=== PATIENT | female | born 1975 | race Caucasian/White ===

== ENCOUNTER 2016-05-29 08:48 | Outpatient (CLI) | payer MEDICAID ==
[~2016-05-29] VITALS: Ht 154.9 cm; Wt 69.8 kg
[~2016-05-29 08:48] MED LIST: PREN1TAB49
[2016-05-29 08:51] VITALS: Ht 154.9 cm; Wt 69.8 kg
[2016-05-29] MEDS ORDERED: CALC600T11 PO (09:40)
[2016-05-29] MEDS ORDERED: FERR325C PO (09:40)
[2016-05-29 10:04] LABS: ADD UMIC YES; URINE BILIRUBIN (Dip) NEGATIVE (NEGATIVE); URINE BLOOD (Dip) NEGATIVE (NEGATIVE); URINE COLOR YELLOW (YELLOW); URINE GLUCOSE (Dip) NEGATIVE (NEGATIVE); URINE KETONES (Dip) 3+ (NEGATIVE); URINE LEUKOCYTE ESTERASE (Dip) TRACE (NEGATIVE); URINE NITRITE (Dip) POSITIVE (NEGATIVE); URINE TOTAL PROTEIN (Dip) TRACE (NEGATIVE); URINE UROBILINOGEN (Dip) 0.2 E.U./dL (0.1-1.0)
--- NOTE | 2016-05-29 10:29 | CONS ---
Date/Time of Note Date/Time of Note DATE: 05/29/16 TIME: 10:21 Assessment/Plan Assessment/Plan Chief Complaint/Hosp Course at 31.3 weeks with cough and reported fever. BPP, CL, FFN, UA ordered. F/ u results. Problems: Consultation Date/Type/Reason Admit Date/Time Reason for Consultation cough, fever Hx of Present Illness Patient reports cough and fever for last 2 days. Fever reported at 102 at home. Took tylenol once yesterday. Reports some nausea and vomiting, but tolerating po intake. Also report decreased movement. Denies LOF, VB, UCs, dysuria. Getting PNC, no complications. Social History Smoking Status: Never smoker Exam/Review of Systems Vital Signs Vitals AFVSS Exam Additional Comments Gen: NAD HEENT: NCAT CV: RRR Pulm: CTAB Abd: gravid, NT Back: no CVAT Ext: NT FHT: reactive [place]: irritability PMH: denies PSH: CS x3 Medications Medications PNV, iron, calcium AGUILAR WIGGINS May 29, 2016 10:29
[2016-05-29 10:38] LABS: BACTERIA,URINE MANY; SQUAMOUS EPITHELIAL CELL,UR FEW; URINE RBCS NONE SEEN /HPF (0)
--- NOTE | 2016-05-29 10:45 | RADRPT ---
PROCEDURE: OB ultrasound for biophysical profile CLINICAL INDICATION: Biophysical profile. . Decreased movement TECHNIQUE: Multiple sonographic images of the pelvis were obtained. Transabdominal and transvagin al views are obtained. COMPARISON: 03/24/2016 FINDINGS: Single intrauterine gestation. Presentation: [place] - breech Placenta: Posterior No evidence of placental abruption. No evidence of placenta previa. Cervix is closed as visualized transvaginally measuring 4.1 cm. breathing movement = 2/2 tone = 2/2 motion = 2/2 KALEIGH = 2/2 KALEIGH = 15.0 cm heart rate: 152 beats per minute IMPRESSION: Single intrauterine gestation. Biophysical profile 09/15 Breech presentation. RPTAT: AADD .Jesus Merino MD, Date Time Electronically viewed and signed by .Jeuss Merino MD, on 05/29/2016 10:45 .B/
--- NOTE | 2016-05-29 11:26 | TRIAGE ---
OB Triage Datetime Report Generated by CPN: 05/29/2016 11:26 Datetime: 05/29/2016 10:23 Labor Evaluation Frequency: Irritability Monitor Mode: External Quality: Mild Pattern: Normal: <= 5 Contractions in 10 Minutes Resting Tone [place]: Relaxed Heart Rate FHR Baseline Rate: 140 Monitor Mode: External US FHR Baseline Changes: No Baseline Change Variability: Moderate 6-25 bpm Accelerations: 15X15 Decelerations: None Category: Category I Pain Presence: None/Denies Datetime: 05/29/2016 09:27 Labor Evaluation Frequency: Irritability Monitor Mode: External Duration (sec)2399: 30-100 Quality: Mild Pattern: Normal: <= 5 Contractions in 10 Minutes Resting Tone [place]: Relaxed Heart Rate FHR Baseline Rate: 135 Monitor Mode: External US FHR Baseline Changes: No Baseline Change Variability: Moderate 6-25 bpm Accelerations: 15X15 Decelerations: None Category: Category I Pain Assessment Pain Scale: 4 Pain Presence: Intermittent Pain Type: Ache Pain Location: Other Pain Goal: 0 Pain Relief Measures: Comfort Measures Pain Assessment Comments: Pt states pain in chest when coughing. Pt denies feeling any pain or pre ssure with contractions Datetime: 05/29/2016 09:00 EGA: 31.3 Datetime: 05/29/2016 08:56 Assessment Type: Triage Maternal Assessment Level of Consciousness: Fully Conscious DTR's/Clonus: DTRs 2+; No Clonus Headache: Denies Blurred Vision: No Respiratory Effort: Unlabored; Regular Rhythm; Equal Expansion Breath Sounds, Left: Clear and Equal Breath Sounds, Right: Clear and Equal Nausea/Vomiting: Denies RUQ Epigastric Pain: Denies Lower Extremities Edema: None Degree: None Upper Extremities Edema: None Degree: None Facial Edema: None Fall Risk Assessment History of Falling: (0) No Secondary Diagnosis: (0) No Ambulatory Aid: (0) Bedrest/Nurse Assist IV Therapy: (0) No Gait: (0) Normal/Bedrest/Immobile Mental Status: (0) Oriented to Own Ability Fall Score: 0 Fall Risk Score Definition: No Risk: No action required Datetime: 05/29/2016 08:52 Time of Arrival: 05/29/2016 08:44 Arrived By: Ambulatory Arrived From: Home Chief Complaint: Flu Symptoms Movement: Decreased Contractions: Denies/Absent Rupture of Membranes: Denies Vaginal Bleeding: None Vaginal Discharge: Denies Recent Sexual Intercouse: Denies Abdominal Trauma: Not Applicable Time Provider Notified: 05/29/2016 09:12 Provider Notified: Uaje Initial Plan: NST, BPP/KALEIGH, Cervical Length, UA Datetime: 05/29/2016 08:49 Stage of : OB Triage
== END 2016-05-29 11:15 | disposition home or self-care (01) ==
LOC: L-D 08:48 → OBT 08:48
PROVIDERS: ATTEND Obstetrics & Gynecology
DX: O26.893 Other specified pregnancy related conditions, third trimester (principal); Z3A.31 31 weeks gestation of pregnancy; R05 Cough; R50.9 Fever, unspecified; O36.8130 Decreased fetal movements, third trimester, not applicable or unspecified
CPT/HCPCS: 76817; 76818; 81001; 82731; Z7500; 81003; G0463

== ENCOUNTER 2016-07-24 07:30 | Inpatient (IN) | payer MEDICAID ==
[~2016-07-24] VITALS: Ht 154.9 cm; Wt 72.7 kg
[~2016-07-24 07:30] MED LIST changes: +CALC600T11 PO; +FERR325C PO
[2016-07-24] MEDS ORDERED: LACTATED RINGER'S 1,000 ML IV SCH (09:49)
[2016-07-24] MEDS ORDERED: OXYTOCIN 30 UNITS/LR 500 ML IV SCH ×2 (10:00→16:59)
[2016-07-24] MEDS ORDERED: METHYLERGONOVINE 0.2 MG INJ IM PRN ×2 (10:00→17:00)
[2016-07-24] MEDS ORDERED: CARBOPROST 250 MCG INJ IM PRN ×2 (10:00→17:00)
[2016-07-24] MEDS ORDERED: MISOPROSTOL 200 MCG TAB PR PRN ×2 (10:00→17:00)
[2016-07-24] MEDS ORDERED: OXYTOCIN 30 UNITS/LR 500 ML IV PRN ×2 (10:00→17:00)
[2016-07-24] MEDS ORDERED: CEFAZOLIN 2 GM/50 ML (PMX) 50 ML IV SCH (10:00)
[2016-07-24 10:18] VITALS: Ht 154.9 cm; Wt 72.7 kg
[2016-07-24 10:46] LABS: ADD SCAN DIFF NO
[2016-07-24 10:51] LABS: ABNORMAL IP MESSAGE 1; BASOPHILS % 0.2 % (0.0-2.0); EOSINOPHILS # 0.1 10^3/ul (0.0-0.5); EOSINOPHILS % 0.6 % (0.0-7.0); HEMATOCRIT 38.5 % (37.0-47.0); HEMOGLOBIN 13.2 g/dl (12.0-16.0); LYMPHOCYTES # 2.4 10^3/ul (0.8-2.9); LYMPHOCYTES % 27.4 % (15.0-51.0); MEAN CORPUSCULAR HEMOGLOBIN 29.7 pg (29.0-33.0); MEAN CORPUSCULAR HGB CONC 34.3 g/dl (32.0-37.0); MEAN CORPUSCULAR VOLUME 86.7 fl (82.0-101.0); MEAN PLATELET VOLUME 13.4 fl (7.4-10.4); MONOCYTE # 0.7 10^3/ul (0.3-0.9); MONOCYTES % 8.4 % (0.0-11.0); NEUTROPHIL # 5.6 10^3/ul (1.6-7.5); NEUTROPHILS % 62.8 % (39.0-77.0); PLATELET COUNT 163 10^3/UL (140-415); RED BLOOD COUNT 4.44 10^6/ul (4.20-5.40); RED CELL DISTRIBUTION WIDTH 15.2 % (11.5-14.5); WHITE BLOOD COUNT 8.8 10^3/ul (4.8-10.8)
[2016-07-24 11:11] LABS: INR 1.01; PROTIME 13.3 Sec (12.2-14.2)
[2016-07-24 11:12] LABS: PARTIAL THROMBOPLASTIN TIME 27.3 Sec (25.0-35.0)
[2016-07-24] MEDS ORDERED: LACTATED RINGER'S 1,000 ML IV ONE (11:34)
[2016-07-24] MEDS ORDERED: FAMOTIDINE 20 MG INJ IV ONE (12:00)
[2016-07-24] MEDS ORDERED: CITRIC ACID/SODIUM CITRATE 15 ML CUP PO ONE (12:00)
[2016-07-24] MEDS ORDERED: METOCLOPRAMIDE 10 MG INJ IV ONE (12:00)
[2016-07-24] MEDS ORDERED: morphine SULFATE/PF (10 MG/10 ML) INJ ONE (12:56)
[2016-07-24] MEDS ORDERED: FENTAnyl 50 MCG/ML VIAL ONE (12:56)
[2016-07-24] MEDS ORDERED: PHENYLephrine (100 MCG/ML) 5ML SYG ONE ×2 (13:07→13:25)
[2016-07-24] MEDS ORDERED: DIPHENHYDRAMINE 50 MG INJ IV PRN ×2 (13:30→16:30)
[2016-07-24] MEDS ORDERED: FENTAnyl 50 MCG/ML VIAL IV PRN (13:30)
[2016-07-24] MEDS ORDERED: MEPERIDINE 25 MG INJ IV PRN (13:30)
[2016-07-24] MEDS ORDERED: HYDROmorphONE (0.2 MG/ML) 10ML SYG IV PRN (13:30)
[2016-07-24] MEDS ORDERED: PROCHLORPERAZINE 10 MG INJ IV PRN ×2 (13:30→16:30)
[2016-07-24] MEDS ORDERED: KETOROLAC 30 MG INJ IV PRN (13:30)
[2016-07-24] MEDS ORDERED: ONDANSETRON 4 MG INJ IV PRN ×3 (13:30→17:00)
[2016-07-24] MEDS ORDERED: ONDANSETRON 4 MG INJ ONE (13:35)
[2016-07-24] MEDS ORDERED: MIDAZOLAM 1 MG/ML 2 ML INJ ONE (13:38)
[2016-07-24] MEDS ORDERED: OXYTOCIN 30 UNITS/LR 500 ML IV ONE ×2 (13:45→14:39)
[2016-07-24] MEDS ORDERED: KETOROLAC 30 MG INJ ONE (14:15)
[2016-07-24] MEDS ORDERED: HYDROmorphONE 2 MG/ML SYG ONE (14:20)
[2016-07-24] MEDS ORDERED: NALOXONE (0.4 MG/ML) INJ IV PRN (16:30)
[2016-07-24] MEDS ORDERED: HYDROmorphONE 1 MG/ML SYG IV PRN ×2 (16:30)
[2016-07-24] MEDS ORDERED: ZOLPIDEM 5 MG TAB PO PRN (16:30)
[2016-07-24] MEDS ORDERED: OXYCODONE/ACETAMINOPHEN (5/325) TAB PO PRN (17:00)
[2016-07-24] MEDS ORDERED: LANOLIN 7 GM TUBE TOP PRN ×2 (17:00)
[2016-07-24] MEDS ORDERED: CEFAZOLIN 1 GM/50 ML (PMX) 50 ML IVPB SCH ×2 (17:00→22:00)
[2016-07-24] MEDS ORDERED: BENZOCAINE 20% 56 ML SPRAY TOP PRN (17:00)
[2016-07-24] MEDS ORDERED: ACETAMINOPHEN 325 MG TAB PO PRN (17:00)
[2016-07-24] MEDS ORDERED: OXYCODONE/ASPIRIN (4.88/325) TAB PO PRN ×2 (17:00)
[2016-07-24] MEDS ORDERED: DIBUCAINE 1% 30 GM OINT TOP PRN (17:00)
[2016-07-24] MEDS ORDERED: ACETAMINOPHEN/CODEINE #3 TAB PO PRN ×4 (17:00)
[2016-07-24] MEDS ORDERED: WITCH HAZEL/GLYCERIN PAD PR PRN (17:00)
--- NOTE | 2016-07-24 17:01 | HP ---
Date/Time of Note Date/Time of Note DATE: 07/24/16 TIME: 16:54 OB - History Hx of Present Free Text/Dictation This is a 37 years old female 6 para 4 IAB 1 admitted to [facility] in labor examination on admission cervix 3 cm dilated 60% effaced vertex at -2 -3 station patient transferred from triage to the L&D unit for delivery This patient has been under the care of the [facility] course was not complicated with gestational diabetes -induced hypertension or any other serious surgical or medical conditions except history of asthma 8 years ago which has not been using any inhaler or any treatment for the asthma Estimated Due Date: Aug 05, 2016 : 6 Para: 4 Therapeutic : 1 Care: Good Care Ultrasounds: Normal mid trimester US Obstetrical Complications: None Past Family/Social History * Past Medical, Surgical, Family and Obstetric Histories reviewed from chart. Rubella: immune RPR/VDRL: Negative GBS Status: Negative HBsAG: Negative OB Admission Exam Physical Exam HEENT: WNL Heart: Rhythm Normal Extremities: Normal Reflexes: Normal Cervical Dilatation: 3cm Effacement: Other (60%) Station: -3 Membranes: Intact Heart Rate: 130's Decelerations: No Decelerations Varibility: Moderate Contractions on Admission: < 5 Minutes Apart Intensity: Moderate Last 72 hours Lab Results CBC & BMP 07/24/16 10:00 OB Assessment/Plan Reason for admission: other (Labor contractions) Plan: Expectant Management MURALI IPERCE MD Jul 24, 2016 17:01
--- NOTE | 2016-07-24 17:05 | LDN ---
Date/Time of Note Date/Time of Note DATE: 07/24/16 TIME: 17:01 Delivery Summary Normal spontaneous vaginal delivery of a baby girl from OA position shoulders delivered without any difficulty rest of the baby's body followed nuchal cord 2 around the baby's neck placenta is spontaneous expulsion inspected complete, perineal vaginal inspection no laceration estimated blood loss 250 cc Weeks of Gestation 38 weeks 2 days Placenta Delivered: Spontaneously Meconium: none Anesthesia type: Epidural Estimated blood loss: 250 Sponge & Needle done & correct: Yes All needle counts correct: Yes Any foreign bodies felt in the: No Problems: Infant Delivery Information Sex Sex: female Apgars 1 Minute: 9 5 Minute: 9 Suctioning Nose & mouth suctioned at sharan: Yes Umbilical Cord Umbilical cord with: 3 Vessels Cord presentations: nuchal cord Cord Blood was obtained: Yes MURALI PIERCE MD Jul 24, 2016 17:05
[2016-07-24 17:25] VITALS: BP 105/49; PULSE 80; RESP 20
[2016-07-24] MEDS ORDERED: IBUPROFEN 600 MG TAB PO SCH ×2 (18:00)
--- NOTE | 2016-07-24 18:00 | HP ---
Date/Time of Note Date/Time of Note DATE: 07/24/16 TIME: 17:45 OB - History Hx of Present Free Text/Dictation 40 years old female 6 para 3 SAB 2 history of 3 previous section with a EDC July 28, 2016 admitted at 39 weeks and 3 days to [facility] for repeat this patient has been under the care of the [facility] and her was not complicated with gestational diabetes -induced hypertension or any other serious medical or surgical condition ' Past history [place] at age 11 history of total of 6 including the present 3 previous and to a spontaneous no other hospitalization for any surgical or medical condition Allergies denies allergy to any known medication Social habit denies a smoking or drinking or using of illicit drug Review of system within normal Physical examination 5 feet 1 160 pound total weight gain during the 10 pounds Temperature 98.3 pulse 88 respiration 18 blood pressure 114/61 Head ears nose and throat negative Neck supple no thyromegaly Lungs clear to P&A Heart normal sinus rhythm no murmur Breast no abnormal palpable mass no nipple retraction or discharge no axillary adenopathy no supraclavicular adenopathy status compatible with the state of the Abdomen fundal height 37 cm from symphysis pubis scar of previous vertex presentation with Daniel maneuvers, heart rate category 1 Pelvic examination deferred Extremity no edema mild varicose Impression intrauterine at 39 weeks and 3 days history of 3 previous section admitted for repeat section for the fourth time patient is aware of the complication of the surgery including bowel bladder injury infection hemorrhage and hematoma and she is willing to go ahead with this procedure Chief Complaint: 39 weeks and 3 days 3 previous section Estimated Due Date: Jul 28, 2016 : 6 Para: 3 Spontaneous : 2 Care: Good Care Ultrasounds: Normal mid trimester US Obstetrical Complications: None Medical Complications: None Past Family/Social History * Past Medical, Surgical, Family and Obstetric Histories reviewed from chart. Rubella: immune RPR/VDRL: Negative GBS Status: Negative HBsAG: Negative OB Admission Exam Vital Signs Vital Signs Vital Signs Date Time Temp Pulse Resp B/P Pulse Ox O2 Delivery O2 Flow Rate FiO2 07/24/16 17:25 97.8 80 20 105/49 Room Air Physical Exam HEENT: WNL Heart: Rhythm Normal Lungs: Clear, Equal Abdomen: WNL Extremities: Normal Reflexes: Normal Cervical Dilatation: None Membranes: Intact Accelerations: Accelerations Present Varibility: Moderate Contractions on Admission: >10 Minutes Apart Intensity: Mild Last 72 hours Lab Results CBC & BMP 07/24/16 10:00 OB Assessment/Plan Reason for admission: other (Repeat section) Other Assessment: 40 years old female 6 para 3 history of 3 previous EDC July admitted for repeat section. Plan: Section MURALI PIERCE MD Jul 24, 2016 17:56
--- NOTE | 2016-07-24 18:27 | OPR ---
DATE OF OPERATION: 07/24/2016 PREOPERATIVE DIAGNOSES: Intrauterine at term, 39 weeks and 3 days, history of 3 previous sections. POSTOPERATIVE DIAGNOSES: Intrauterine at term, 39 weeks and 3 days, history of 3 previous sections. PROCEDURE PERFORMED: Repeat transverse low cervical section. SURGEON: Murali Pierce MD ANDROID PLATFORM DEVELOPER: Teresa James MD ANESTHESIA: Spinal. ANESTHESIOLOGIST: Dr. Fine. FINDINGS: Live baby girl, Apgars 9 and 9. Baby weighed at 4095 grams. DETAILS OF THE PROCEDURE: Under satisfactory spinal anesthesia, the patient was prepped and draped and placed in supine position, tilted to the left. Pfannenstiel incision was made, incision carried through the subcutaneous tissue. Bleeders brought under control with electrocautery. Fascia incis ed to the length of the incision. Rectus muscle divided in midline. Peritoneum exposed, entered th rough a transverse incision. Exploration of abdomen revealed adhesions between the anterior uterine wall and anterior abdominal wall and the right round ligament which was taken down by the sharp and blunt dissection. Lower segment of the uterus finally released from the adhesions. Bladder flap w as developed. Transverse incision was made in the lower segment of the uterus. Amniotic sac ruptur ed. Clear amniotic fluid noted. Live baby girl was delivered from unengaged vertex. Nasal orophar yngeal suction was performed. Cord clamped after stopped pulsation. The baby handed to the neonata l team for immediate attention. Patient received 2 units of Pitocin. Placenta delivered manually i ntact. Uterine cavity cleaned with wet sponge and drainage established. Uterus closed in 2 layers using Monocryl #1 in continuous fashion. Peritoneal cavity irrigated with warm saline. Sponge, nee dle and instrument reported to be correct. Abdominal peritoneum closed with 2-0 chromic catgut cont inuously. Rectus muscle approximated with few interrupted 2-0 chromic catgut. Fascia closed with # 1 PDS in a continuous fashion. Subcutaneous tissue irrigated with warm saline and approximated with a few interrupted 2-0 chromic catgut. Skin closed with leonor. Estimated blood loss 600 mL. Uri ne bag contained 200 mL of clear urine. Patient tolerated the procedure well, transferred to [facility] room in good condition. Dictated By: MURALI PIERCE MD HF/NTS Conf#: [id number] [facility]#: [id number]
[2016-07-24] MEDS: OXYTOCIN 30 UNITS/LR 500 ML IV SCH ×2 (19:13→23:26)
[2016-07-24 19:30] VITALS: BP 122/60; PULSE 88; RESP 19
[2016-07-24] MEDS ORDERED: SENNA/DOCUSATE NA (8.6MG/50MG) TAB PO SCH (21:00)
[2016-07-24] MEDS: SENNA/DOCUSATE NA (8.6MG/50MG) TAB PO SCH (21:19)
[2016-07-25] VITALS: BP 115/64; PULSE 81; RESP 19
[2016-07-25] MEDS: OXYTOCIN 30 UNITS/LR 500 ML IV SCH ×2 (00:59→04:59)
[2016-07-25] MEDS: KETOROLAC 30 MG INJ IV PRN ×2 (03:42→11:10)
[2016-07-25 04:00] VITALS: BP 116/68; PULSE 75
[2016-07-25] MEDS ORDERED: LACTATED RINGER'S 1,000 ML IV SCH (04:00)
[2016-07-25 07:48] LABS: ADD SCAN DIFF NO
[2016-07-25 07:55] LABS: BASOPHILS % 0.2 % (0.0-2.0); EOSINOPHILS # 0.2 10^3/ul (0.0-0.5); EOSINOPHILS % 1.2 % (0.0-7.0); HEMOGLOBIN 10.2 g/dl (12.0-16.0); LYMPHOCYTES # 1.8 10^3/ul (0.8-2.9); MEAN CORPUSCULAR HEMOGLOBIN 29.5 pg (29.0-33.0); MEAN CORPUSCULAR VOLUME 86.7 fl (82.0-101.0); MEAN PLATELET VOLUME 12.7 fl (7.4-10.4); MONOCYTES % 7.3 % (0.0-11.0); NEUTROPHIL # 10.7 10^3/ul (1.6-7.5); NEUTROPHILS % 77.8 % (39.0-77.0); PLATELET COUNT 141 10^3/UL (140-415); RED BLOOD COUNT 3.46 10^6/ul (4.20-5.40); RED CELL DISTRIBUTION WIDTH 14.9 % (11.5-14.5); WHITE BLOOD COUNT 13.8 10^3/ul (4.8-10.8)
[2016-07-25] MEDS: SENNA/DOCUSATE NA (8.6MG/50MG) TAB PO SCH ×2 (09:45→21:18)
--- NOTE | 2016-07-25 11:13 | PN ---
Date/Time of Note Date/Time of Note DATE: 07/25/16 TIME: 11:12 OB Subjective Subjective Subjective Post day 1 Afebrile vital signs stable abdomen soft bowel sounds present mildly distended incision lochia moderate extremity normal ambulation encouraged Laboratory Tests Test 07/25/16 07:24 White Blood Count 13.810^3/ul Red Blood Count 3.4610^6/ul Hemoglobin 10.2g/dl Hematocrit 30.0% Mean Corpuscular Volume 86.7fl Mean Corpuscular Hemoglobin 29.5pg Mean Corpuscular Hemoglobin Concent 34.0g/dl Red Cell Distribution Width 14.9% Platelet Count 30561^3/UL Mean Platelet Volume 12.7fl Neutrophils % 77.8% Lymphocytes % 13.0% Monocytes % 7.3% Eosinophils % 1.2% Basophils % 0.2% Nucleated Red Blood Cells % 0.0/100WBC Neutrophils # 10.710^3/ul Lymphocytes # 1.810^3/ul Monocytes # 1.010^3/ul Eosinophils # 0.210^3/ul Basophils # 0.010^3/ul Nucleated Red Blood Cells # 0.010^3/ul Current Medications Medications (Trade) Dose Ordered Sig/Suzy Route PRN Reason Start Time Stop Time Status Last Admin Dose Admin Lactated Ringer's 1,000 ml @ 125 mls/hr Q8H IV 07/24/16 09:49 07/24/16 17:08 DC 07/24/16 10:27 Cefazolin Sodium/ Dextrose 50 ml @ 100 mls/hr ONCE IV 07/24/16 10:00 07/24/16 17:08 DC Oxytocin/Lactated Ringer's 500 ml @ 125 mls/hr ONCE IV 07/24/16 10:00 07/24/16 17:08 DC 07/24/16 15:25 Oxytocin/Lactated Ringer's 500 ml @ 0 mls/hr ONCE PRN IV For Hemorrhage Management 07/24/16 10:00 07/24/16 17:09 DC Methylergonovine Maleate (Methergine) 0.2 mg ONCE PRN IM VAGINAL BLEEDING 07/24/16 10:00 07/24/16 17:09 DC Carboprost Tromethamine (Hemabate) 250 mcg ONCE PRN IM VAGINAL BLEEDING 6/16/17 10:00 07/24/16 17:09 DC Misoprostol 1000 mcg 1,000 mcg ONCE PRN IA VAGINAL BLEEDING 07/24/16 10:00 07/24/16 17:09 DC Lactated Ringer's (Lr) 1,000 ml @ 1,000 mls/hr Q1H ONCE IV 07/24/16 11:34 07/24/16 12:33 DC 07/24/16 12:23 Citric Acid/ Sodium Citrate (Bicitra) 30 ml PRE-PROCEDURE ONCE PO 07/24/16 12:00 07/24/16 12:01 DC 07/24/16 12:22 Famotidine (Pepcid Iv) 20 mg pre-procedure ONCE IV 07/24/16 12:00 07/24/16 12:01 DC 07/24/16 12:23 Metoclopramide HCl (Reglan) 10 mg ONCE ONCE IV 07/24/16 12:00 07/24/16 12:01 DC 07/24/16 12:23 Fentanyl (Sublimaze) 100 mcg STK-MED ONCE .ROUTE 07/24/16 12:56 07/24/16 12:57 DC Morphine Sulfate (Duramorph) 10 mg STK-MED ONCE .ROUTE 07/24/16 12:56 07/24/16 12:57 DC Phenylephrine HCl (Artem-Synephrine Inj Syg) 500 mcg STK-MED ONCE .ROUTE 07/24/16 13:07 07/24/16 13:08 DC Phenylephrine HCl (Artem-Synephrine Inj Syg) 500 mcg STK-MED ONCE .ROUTE 07/24/16 13:25 07/24/16 13:26 DC Hydromorphone HCl (Dilaudid (Rec)) 0.4 mg PACU ORDER PRN IV PAIN 07/24/16 13:30 07/24/16 17:09 DC 07/24/16 15:25 Fentanyl (Sublimaze) 25 mcg PACU ORDER PRN IV PAIN 07/24/16 13:30 07/24/16 17:09 DC Ketorolac Tromethamine (Toradol) 30 mg PACU ORDER PRN IV PAIN 07/24/16 13:30 07/24/16 14:18 DC Ondansetron HCl (Zofran Inj) 4 mg PACU ORDER PRN IV NAUSEA AND/OR VOMITING 07/24/16 13:30 07/24/16 17:09 DC Prochlorperazine (Compazine Inj) 5 mg PACU ORDER PRN IV NAUSEA AND/OR VOMITING 07/24/16 13:30 07/24/16 17:09 DC Meperidine HCl (Demerol) 25 mg PACU ORDER PRN IV POST-OP RIGORS 07/24/16 13:30 07/24/16 17:09 DC Diphenhydramine HCl (Benadryl) 25 mg PACU ORDER PRN IV PRURITUS 07/24/16 13:30 07/24/16 17:09 DC Ondansetron HCl (Zofran Inj) 4 mg STK-MED ONCE .ROUTE 07/24/16 13:35 07/24/16 13:36 DC Midazolam HCl 2 mg 2 mg STK-MED ONCE .ROUTE 07/24/16 13:38 07/24/16 13:39 DC Oxytocin/Lactated Ringer's 500 ml @ ud STK-MED ONCE IV 07/24/16 13:45 07/24/16 13:46 DC Ketorolac Tromethamine (Toradol) 30 mg STK-MED ONCE .ROUTE 07/24/16 14:15 07/24/16 14:16 DC Hydromorphone HCl 2 mg 2 mg STK-MED ONCE .ROUTE 07/24/16 14:20 07/24/16 14:21 DC Oxytocin/Lactated Ringer's 500 ml @ ud STK-MED ONCE IV 07/24/16 14:39 07/24/16 14:40 DC Naloxone HCl (Narcan) 0.1 mg Q2M PRN IV FOR RESP RATE 8 OR LESS 07/24/16 16:30 07/25/16 16:29 Ketorolac Tromethamine (Toradol) 30 mg Q6H PRN IV PAIN 07/24/16 16:30 07/25/16 16:29 07/25/16 03:42 Hydromorphone HCl (Dilaudid) 0.4 mg Q3H PRN IV PAIN LEVEL 1-5 07/24/16 16:30 07/25/16 16:29 Hydromorphone HCl (Dilaudid) 0.6 mg Q3H PRN IV PAIN LEVEL 6-10 07/24/16 16:30 07/25/16 16:29 Diphenhydramine HCl (Benadryl) 25 mg Q6H PRN IV ITCHING 07/24/16 16:30 07/25/16 16:29 Ondansetron HCl (Zofran Inj) 4 mg Q6H PRN IV NAUSEA AND/OR VOMITING 07/24/16 16:30 07/25/16 16:29 Prochlorperazine (Compazine Inj) 10 mg ONCE PRN IV NAUSEA AND/OR VOMITING 07/24/16 16:30 07/25/16 16:29 Zolpidem Tartrate (Ambien) 5 mg HS MAY REPEAT X 1 PRN PO INSOMNIA 07/24/16 16:30 07/25/16 16:29 Miscellaneous Information (* Miscellaneous Pharmacy Order) Duramorph: 0.2 mg Spi... GIVEN XX 07/24/16 16:30 07/24/16 17:09 DC Acetaminophen/ Codeine Phosphate (Tylenol No.3) 1 tab Q4H PRN PO PAIN LEVEL 4-6 07/24/16 17:00 Acetaminophen/ Codeine Phosphate (Tylenol No.3) 2 tab Q4H PRN PO PAIN LEVEL 7-10 07/24/16 17:00 Oxycodone/ Acetaminophen (Percocet (5/ 325)) 1 tab Q4H PRN PO PAIN LEVEL 4-6 07/24/16 17:00 Oxycodone/ Acetaminophen (Percocet (5/ 325)) 2 tab Q4H PRN PO PAIN LEVEL 7-10 07/24/16 17:00 Ibuprofen (Motrin) 600 mg Q6 PO 07/24/16 18:00 07/24/16 18:37 DC Simethicone (Mylicon) 160 mg Q8H PRN PO DISTENSION/GAS/BLOATING 07/24/16 17:00 Senna/Docusate Sodium (Senokot-S) 1 tab BID PO 07/24/16 21:00 07/25/16 09:45 Lanolin (Rij-U-Ndvbml) 1 applic BEDSIDE MEDICATION PRN TOP BEDSIDE FOR FISH TO NIPPLES 07/24/16 17:00 Diphtheria/ Tetanus/Acell Pertussis 0.5 ml 0.5 ml ONCE ONCE IM* 07/27/16 09:00 07/27/16 09:01 Oxytocin/Lactated Ringer's 500 ml @ 0 mls/hr ONCE PRN IV For Hemorrhage Management 07/24/16 17:00 Methylergonovine Maleate (Methergine) 0.2 mg ONCE PRN IM VAGINAL BLEEDING 07/24/16 17:00 Carboprost Tromethamine (Hemabate) 250 mcg ONCE PRN IM VAGINAL BLEEDING 07/24/16 17:00 Misoprostol 1000 mcg 1,000 mcg ONCE PRN IA VAGINAL BLEEDING 07/24/16 17:00 Cefazolin Sodium 50 ml @ 100 mls/hr ONCE IVPB 07/24/16 17:00 07/24/16 17:29 Cancel Oxytocin/Lactated Ringer's 500 ml @ 125 mls/hr Q4H IV 07/24/16 16:59 07/24/16 23:26 Oxytocin/Lactated Ringer's 500 ml @ 125 mls/hr Q4H IV 07/24/16 16:59 07/25/16 00:58 Cancel Ibuprofen (Motrin) 600 mg Q6 PO 07/24/16 18:00 Cancel Acetaminophen (Tylenol Tab) 650 mg Q4H PRN PO PAIN LEVEL 1-5 07/24/16 17:00 Cancel Acetaminophen/ Codeine Phosphate (Tylenol No.3) 1 tab Q4H PRN PO PAIN LEVEL 1-5 07/24/16 17:00 Cancel Acetaminophen/ Codeine Phosphate (Tylenol No.3) 2 tab Q4H PRN PO PAIN LEVEL 6-10 07/24/16 17:00 Cancel Oxycodone/Aspirin (Percodan) 1 tab Q3H PRN PO PAIN LEVEL 1-5 07/24/16 17:00 Cancel Oxycodone/Aspirin (Percodan) 2 tab Q3H PRN PO PAIN LEVEL 6-10 07/24/16 17:00 Cancel Ondansetron HCl (Zofran Inj) 4 mg Q6H PRN IV NAUSEA AND/OR VOMITING 07/24/16 17:00 Cancel Senna/Docusate Sodium (Senokot-S) 1 tab BID PO 07/24/16 21:00 Cancel Witch Jillian/ Glycerin (Tucks Pads) 1 pad BEDSIDE MEDICATION PRN IA HEMORRHOID/EPISIOTMY PAIN 07/24/16 17:00 Cancel Benzocaine (Dermoplast [place]) 1 spray BEDSIDE MEDICATION PRN TOP HEMORRHOID/EPISIOTMY PAIN 07/24/16 17:00 Cancel Dibucaine (Nupercainal) 1 applic BEDSIDE MEDICATION PRN TOP HEMORRHOID/EPISIOTMY PAIN 07/24/16 17:00 Cancel Lanolin (Gks-C-Rpukvl) 1 applic BEDSIDE MEDICATION PRN TOP BEDSIDE FOR FISH TO NIPPLES 07/24/16 17:00 Cancel Measles/Mumps/ Rubella Vaccine Live 0.5 ml 0.5 ml ONCE ONCE SC* 07/26/16 09:00 07/26/16 09:01 Cancel Cefazolin Sodium (Ancef 1 Gm/50 ml (Pmx)) 50 ml @ 100 mls/hr ONCE IVPB 07/24/16 22:00 07/24/16 23:33 DC 07/24/16 22:08 Ibuprofen 600 mg 600 mg Q6 PO 07/25/16 18:00 Lactated Ringer's (Lr) 1,000 ml @ 125 mls/hr Q8H IV 07/25/16 04:00 07/25/16 14:00 07/25/16 03:41 MURALI PIERCE MD Jul 25, 2016 11:13
[2016-07-25] MEDS: IBUPROFEN 600 MG TAB PO SCH ×2 (18:44→23:30)
[2016-07-25 19:45] VITALS: BP 105/55; PULSE 92; RESP 19
[2016-07-25] MEDS: OXYCODONE/ACETAMINOPHEN (5/325) TAB PO PRN (21:19)
[2016-07-26 03:40] VITALS: BP 104/52; PULSE 78; RESP 19
[2016-07-26] MEDS: IBUPROFEN 600 MG TAB PO SCH ×4 (05:38→23:29)
[2016-07-26 08:00] VITALS: BP 100/50; PULSE 75; RESP 18
[2016-07-26] MEDS ORDERED: MEASLES,MUMPS,RUBELLA VACCINE INJ SC* ONE (09:00)
[2016-07-26] MEDS: SENNA/DOCUSATE NA (8.6MG/50MG) TAB PO SCH ×2 (09:00→21:55)
[2016-07-26] MEDS ORDERED: NA PHOSPHATE/BIPHOS 133 ML ENEMA PR PRN (13:00)
[2016-07-26 15:22] VITALS: BP 105/66; PULSE 89; RESP 18
[2016-07-26 20:05] VITALS: BP 103/59; PULSE 80; RESP 18
[2016-07-26] MEDS: OXYCODONE/ACETAMINOPHEN (5/325) TAB PO PRN (21:55)
[2016-07-27 03:58] VITALS: BP 107/53; PULSE 64; RESP 18
[2016-07-27] MEDS: IBUPROFEN 600 MG TAB PO SCH ×2 (05:31→11:19)
[2016-07-27 07:39] VITALS: BP 97/47; PULSE 59; RESP 18
[2016-07-27] MEDS: SENNA/DOCUSATE NA (8.6MG/50MG) TAB PO SCH (07:52)
[2016-07-27] MEDS ORDERED: DIPHTH/TET/ACEL PERTUSS (ADULT) 0.5 ML VIAL IM* ONE (09:00)
--- NOTE | 2016-07-27 10:15 | PD.PPDC ---
FIRER WATERTENDER Discharge Instruction Condition Patient Condition: Good Diet Diet: Resume Regular Diet Activity/Restrictions Activity: Normal Activity May Shower Restrictions: No Exercising No Lifting No Driving No Sexual Activity Nothing in the Vagina No [place] No Tampons, douche Wound/Drain Care Instructions Wound/Drain Care Instructions: Remove Steri Strips in 1 week Wash with soap and water Keep clean and dry Follow-up Follow-up with Physician: 4, Day/Days Provider Information: Appointment clinic in 4 day to discontinue leonor, instructions given to the patient at the time of discharge Return to clinic for MUCKER COFFERDAM Instructions: Fever greater than 101 Chills Worsening abdominal pain Excessive Vaginal Bleeding More than 2 pads per hour Unable to tolerate diet OB Instructions: Breast Tenderness Depression Blurried Vision Headache Surgical Instructions: Incisional Drainage Incisional Redness MURALI PIERCE MD Jul 27, 2016 10:15
--- NOTE | 2016-07-27 10:19 | DS ---
Date/Time of Note Date/Time of Note DATE: 07/27/16 TIME: 10:17 Discharge Summary Admission/Discharge Info Admit Date/Time Jul 24, 2016 at 09:23 Discharge Date/Time July 27, 2016 at 10:15 AM Final Diagnosis Date 3 post repeat Patient Condition: Good Procedures Repeat Hx of Present Illness Term history of 3 previous Hospital Course Uneventful satisfactory Home Meds Reported Medications Ferrous Sulfate (Iron) 325 Mg Capsule.er, 325 MG PO, CAP 05/29/16 Calcium Carbonate* (Calcium Carbonate*) 600 MG Ca Tab, 600 MG PO, TAB 05/29/16 Vits W-Ca,Fe,Fa(<1MG) () 1 Tab Tablet 04/22/11 Follow-up Plan Appointment clinic in 4 days to discontinue leonor Primary Care Provider Care Physician No Primary Time spent on discharge: < 30 minutes MURALI PIERCE MD Jul 27, 2016 10:18
== END 2016-07-27 11:45 | disposition home or self-care (01) | DRG 766 ==
LOC: L-D 09:23 → PP1 17:08
PROVIDERS: ADMIT Obstetrics & Gynecology; ATTEND Obstetrics & Gynecology
PROC: 10D00Z1 Extraction of Products of Conception, Low, Open Approach (ICD-10-PCS; principal; 2016-07-24 12:30)
DX: O34.211 Maternal care for low transverse scar from previous cesarean delivery (principal); O09.523 Supervision of elderly multigravida, third trimester; Z3A.39 39 weeks gestation of pregnancy; Z37.0 Single live birth
CPT/HCPCS: 85025; 85610; 85730; 86592; 86850; 86900; 86901; 86920; 87340; 90715; 94760; 99464; J0690; J1170; J1885; J2250; J2274; J2370; J2405; J2590; J2765; J3010; J7120